=== PATIENT | male | born 1985 | race African-American/Black ===

== ENCOUNTER 2019-11-11 14:40 | Emergency (ER) | payer OTHER, SELFPAY | END 2019-11-11 15:16 | disposition home or self-care (01) | LOC: ERS 14:40 | DX: M54.5 Low back pain (principal); V89.2XXA Person injured in unspecified motor-vehicle accident, traffic, initial encounter | CPT/HCPCS: 99283 ==

== ENCOUNTER 2019-11-26 23:34 | Emergency (ER) | payer SELFPAY ==
[2019-11-26] MEDS ORDERED: Lidocaine 1% w/Epinephrine 1:100K 20 ML VIAL ONE (23:45)
[2019-11-27] MEDS ORDERED: Bacitracin 1 PK ONE (00:20)
== END 2019-11-27 00:34 | disposition home or self-care (01) ==
LOC: ERS 23:34
DX: S61.512A Laceration without foreign body of left wrist, initial encounter (principal); W26.8XXA Contact with other sharp object(s), not elsewhere classified, initial encounter
CPT/HCPCS: 12002